=== PATIENT | male | born 1995 | race Caucasian/White ===

== ENCOUNTER 2017-03-21 20:21 | Observation (INO) | payer SELFPAY ==
[2017-03-21] MEDS ORDERED: NS 1,000 ML IV ONE (20:56)
[2017-03-21] MEDS ORDERED: ONDANSETRON 4 MG/2 ML VIAL IVP ONE (20:56)
[2017-03-21] MEDS ORDERED: fentaNYL 100 MCG/2 ML INJ IVP ONE (20:56)
--- NOTE | 2017-03-21 21:01 | EDPHY ---
H & P Stated Complaint: LLQ abd pain Source: Patient Exam Limitations: No limitations - Personal History Current Tetanus/Diphtheria Vaccine: Unsure Current Tetanus Diphtheria and Acellular Pertussis (TDAP): Unsure - Medical/Surgical History Hx Asthma: No Hx Chronic Respiratory Disease: No Hx Diabetes: No Hx Cardiac Disease: No Hx Renal Disease: No Hx Cirrhosis: No Hx Alcoholism: No Hx HIV/AIDS: No Hx Splenectomy or Spleen Trauma: No Other PMH: N/A - Social History Smoking Status: Current every day smoker HPI/ROS: CHIEF COMPLAINT: Flank pain, abdominal pain HISTORY OF PRESENT ILLNESS: Patient complains of left-sided flank pain. This originally started 2 weeks ago. It is intermittent, colicky pain. Radiates in the left abdomen. No position of comfort at this time. It is steadily worsened. It is now constant. Nauseated. No fever. Mom vomiting multiple times. No hematuria, but he has frequent urination and incomplete urination. No known history of kidney stones but feels that he is having 1. No other associated complaints or modifying factors. Last intake by mouth of solids was 2:00 p.m. today. Last intake of water was 4 hours ago REVIEW OF SYSTEMS: Ten systems reviewed and are negative unless otherwise noted in the HPI PAST MEDICAL HISTORY: None PAST SURGICAL HISTORY: None SOCIAL HISTORY: Occasional tobacco and marijuana user. FAMILY HISTORY: None EXAMINATION General Appearance: Alert, no distress, in obvious discomfort Head: normocephalic, atraumatic Eyes: Pupils equal and round, no conjunctival pallor or injection ENT, Mouth: Mucous membranes moist Neck: Normal inspection, supple, non-tender Respiratory: Lungs are clear to auscultation. No wheeze, rhonchi or crackles Cardiovascular: Tachycardic rate. Regular rhythm Gastrointestinal: Abdomen is soft and nondistended. There is significant tenderness in left lower quadrant and left flank. No guarding. No rigidity. No tympany. Back: Left CVA tenderness. non-tender, no bony abnormalities Neurological: GCS 15. A&O, nonfocal Skin: Warm and dry, no rash no petechiae or purpura. Extremities: Nontender, no pedal edema Psychiatric: Mood and affect normal DIFFERENTIAL DIAGNOSES: Including but not limited to renal colic, ureteral colic, pyelonephritis, appendicitis, colitis, diverticulitis MDM: 9:00 p.m. Abdominal flank pain that is suspicious for renal colic. I have ordered CT scan , IV fluid, pain medication and laboratory studies. He is in no acute distress but very uncomfortable. 9:35 p.m. Notified by radiologist Dr. Torres. CT scan reveals multiple findings. There is a 5 mm stone at the left UVJ. There is a massively dilated ureter proximal with this. There is also a 10 mm stone in the inferior pole of the left kidney. The appearance of the ureter suggest the possibility of chronic stone pathology. 9:40 p.m. I re-evaluated the patient. He is not yet received medications. He is nauseated. I will switch the fentanyl to Dilaudid. Continue with IV fluid. Need urinalysis. 10:05 p.m. Patient re-evaluated. He has received his IV Dilaudid and is feeling minimally better. Still unable to urinate. IV fluid is currently administered. 10:10 p.m. Small amount of urine was obtained. We were able to perform a urine dip on this. Dip shows positive protein, positive ketones, positive blood. Negative for nitrite or bacteria. 10:15 p.m. Patient re-evaluated. Pain has increased to 8/10. Re-dose with 0.5 Dilaudid. Proceed with admission to the hospital. 10:20 p.m. Case discussed with Dr. Rose Bellamy. Admitted to her service. She is requesting Urology consult. Urology has been paged. 10:25 p.m. Case discussed with Urology Dr. Mcgarry. Patient will provide consultation. No further orders. (Joseph Sharpe) Constitutional: Initial Vital Signs Temperature (C) 36.7 C 03/21/17 20:33 Heart Rate 93 03/21/17 20:33 Respiratory Rate 20 03/21/17 20:33 Blood Pressure 171/87 H 03/21/17 20:33 O2 Sat (%) 96 03/21/17 20:33 O2 Delivery Mode Room Air Allergies/Adverse Reactions: No Known Allergies Allergy (Unverified 03/21/17 20:33) Home Medications: Medication Instructions Recorded Tamsulosin HCl [Flomax 0.4 MG (*)] 0.4 mg PO DAILY #14 cap 03/22/17 oxyCODONE IR [Oxycodone Ir (*)] 5 - 10 mg PO Q4H #10 tab 03/22/17 Medical Decision Making ED Course/Re-evaluation: The patient was evaluated and managed by the physician patient care assistant. I have reviewed this chart and I agree with the findings and plan of care as documented , as indicated by my signature. I am the secondary supervising physician. ( Lou Regalado) - Data Points Laboratory Results: Laboratory Results 03/21/17 21:14 03/21/17 21:14 Medications Given: Discontinued Medications Fentanyl (Sublimaze) 100 mcg IVP EDNOW ONE Stop: 03/21/17 20:57 Last Admin: 03/21/17 22:14 Dose: Not Given Hydromorphone HCl (Dilaudid) 1 mg IVP EDNOW ONE Stop: 03/21/17 21:43 Last Admin: 03/21/17 21:45 Dose: 1 mg Hydromorphone HCl (Dilaudid) 0.5 mg IVP EDNOW ONE Stop: 03/21/17 22:15 Last Admin: 03/21/17 22:16 Dose: 0.5 mg Hydromorphone HCl (Dilaudid) 0.4 mg IVP Q4HRS PRN PRN Reason: Pain, Severe Unable to Take PO Stop: 03/31/17 22:26 Last Admin: 03/21/17 23:45 Dose: 0.4 mg Sodium Chloride (Ns) 1,000 mls @ 0 mls/hr IV EDNOW ONE; Wide Open PRN Reason: Protocol Stop: 03/21/17 20:57 Last Admin: 03/21/17 21:45 Dose: 1,000 mls Ondansetron HCl (Zofran) 4 mg IVP EDNOW ONE Stop: 03/21/17 20:57 Last Admin: 03/21/17 21:45 Dose: 4 mg Tamsulosin HCl (Flomax) 0.4 mg PO DAILY [facility] Stop: 09/17/17 23:44 Last Admin: 03/22/17 08:04 Dose: 0.4 mg Departure - Departure Disposition: [facility] Clinical Impression: Renal colic on left side, Ureteral calculus, left, Ureteral dilatation Condition: Good
[2017-03-21 21:28] LABS: % IMMATURE GRANULYOCYTES 0.4 % (0.0-1.1); ABSOLUTE IMMATURE GRANULOCYTES 0.06 10^3/uL (0.00-0.10); ADD DIFF? NO; ADD MORPH? NO; ADD SCAN? NO; ATYPICAL LYMPHOCYTE FLAG 10 (0-99); FRAGMENT RBC FLAG 0 (0-99); HEMATOCRIT 46.1 % (40.0-51.0); HEMOGLOBIN 16.4 g/dL (13.7-17.5); LEFT SHIFT FLG 0 (0-99); LIPEMIA HEMOLYSIS FLAG 90 (0-99); MEAN CELL HEMOGLOBIN 32.9 pg (27.9-34.1); MEAN CELL HEMOGLOBIN CONCENTR. 35.6 g/dL (32.4-36.7); MEAN CELL VOLUME 92.4 fL (81.5-99.8); MEAN PLATELET VOLUME 9.9 fL (8.7-11.7); PLATELET CLUMPS FLAG 10 (0-99); PLATELET COUNT 240 10^3/uL (150-400); RED BLOOD CELL COUNT 4.99 10^6/uL (4.40-6.38); RED CELL DISTRIBUTION WIDTH 12.3 % (11.5-15.2)
[2017-03-21 21:37] LABS: ALANINE AMINOTRANSFERASE 34 IU/L (21-72); ALBUMIN 4.6 g/dL (3.5-5.0); ALKALINE PHOSPHATASE 59 IU/L (38-126); ANION GAP 16 mEq/L (8-16); ASPARTATE AMINOTRANSFERASE 27 IU/L (17-59); BILIRUBIN,TOTAL 0.7 mg/dL (0.1-1.4); BILIRUBIN-CONJUGATED 0.4 mg/dL (0.0-0.5); BILIRUBIN-UNCONJUGATED 0.3 mg/dL (0.0-1.1); CALCIUM 9.8 mg/dL (8.5-10.4); CARBON DIOXIDE 22 mEq/l (22-31); CHLORIDE 101 mEq/L (97-110); CREATININE 1.7 mg/dL (0.7-1.3); GLOMERULAR FILTRATION RATE 51; GLUCOSE 87 mg/dL (70-100); SODIUM 139 mEq/L (134-144); TOTAL PROTEIN 7.4 g/dL (6.3-8.2)
[2017-03-21] MEDS ORDERED: HYDROmorphONE/DILAUDID 1 MG/ML INJ IVP ONE ×2 (21:42→22:14)
[2017-03-21] MEDS ORDERED: ONDANSETRON DISINTEGRATING 4 MG TAB PO PRN (22:26)
[2017-03-21] MEDS ORDERED: ACETAMINOPHEN 325 MG TAB PO PRN (22:26)
[2017-03-21] MEDS ORDERED: ONDANSETRON 4 MG/2 ML VIAL IVP PRN (22:26)
[2017-03-21] MEDS ORDERED: HYDROmorphONE/DILAUDID 1 MG/ML INJ IVP PRN (22:27)
[2017-03-21] MEDS ORDERED: NS 1,000 ML IV SCH (22:30)
[2017-03-21 23:35] VITALS: RESP 16
[2017-03-22] MEDS: TAMSULOSIN HCL 0.4 MG CAP PO SCH ×2 (00:14→08:04)
--- NOTE | 2017-03-22 00:49 | GHP ---
[f rep st] HISTORY AND PHYSICAL DATE OF ADMISSION: 03/21/2017 CHIEF COMPLAINT: Left ureter stone, flank pain. HISTORY OF PRESENT ILLNESS: A 22-year-old male with no significant past medical history, presenting with left-sided flank pain. He noted initially 2 weeks ago. It was intermittent and colicky in his right flank and right suprapubic region. The pain has progressed, is now constant. He felt nauseated and had an episode of emesis today. No fevers. No hematuria, but has been urinating more frequently and not completing it. REVIEW OF SYSTEMS: I completed a 10-point review of systems, negative except as noted per HPI. PAST MEDICAL HISTORY: None. PAST SURGICAL HISTORY: None. SOCIAL HISTORY: Lives in [place]. Works as a plant manager. Smokes marijuana, tobacco. Used cocaine yesterday. FAMILY HISTORY: Mother: Prediabetes. MEDICATIONS: None. ALLERGIES: None. PHYSICAL EXAM: VITAL SIGNS: Temperature 36.9, blood pressure 140/74, heart rate 55, respirations 16, 96% on room air. GENERAL: Lying in bed on stomach, uncomfortable. HEENT: PERRLA. Dry mucous membranes. CV: Regular rate and rhythm. No murmurs, gallops, rubs. LUNGS: Clear to auscultation bilaterally. ABDOMEN: Soft, nondistended. Left lower quadrant pain. Positive bowel sounds. : Left CVA tenderness. MUSCULOSKELETAL: 5/5 upper and lower extremity strength. NEUROLOGIC: 2 through 12 intact. PSYCHIATRIC: Alert and oriented x3. LABORATORY DATA: WBC 15, hemoglobin 16, hematocrit 46, platelets 240. Sodium 139, potassium 4.0, chloride 101, anion gap 16, BUN 27, creatinine 1.7. LFTs within normal. Lipase 64. CT abdomen and pelvis: Marked dilatation of the right renal pelvis and ureter, 5.5 mm calculus at the left UVJ. A 10 mm calculus, lower pole left kidney. ASSESSMENT AND PLAN: 1. Left ureteral and kidney stones: CT showing dilatation. Urology was consulted from the emergency room.Treat symptomatically with IV fluids and IV Dilaudid. Strain urine. Flomax. 2. Acute flank pain secondary to above. UA pending. 3. Acute kidney injury: Creatinine elevated at 1.7. Hydrate. Repeat in the morning. 4. Diet: N.P.O. after midnight. DISPOSITION: Patient warrants observation admission given acute kidney stone warranting IV fluids and IV pain control. /[id number]/MODL MTDD
[2017-03-22 05:24] LABS: HEMATOCRIT 43.9 % (40.0-51.0); HEMOGLOBIN 15.4 g/dL (13.7-17.5); MEAN CELL HEMOGLOBIN 33.1 pg (27.9-34.1); MEAN CELL HEMOGLOBIN CONCENTR. 35.1 g/dL (32.4-36.7); MEAN CELL VOLUME 94.4 fL (81.5-99.8); RED BLOOD CELL COUNT 4.65 10^6/uL (4.40-6.38); RED CELL DISTRIBUTION WIDTH 12.3 % (11.5-15.2)
[2017-03-22 05:53] LABS: ANION GAP 10 mEq/L (8-16); CALCIUM 9.2 mg/dL (8.5-10.4); CARBON DIOXIDE 21 mEq/l (22-31); CHLORIDE 105 mEq/L (97-110); CREATININE 1.2 mg/dL (0.7-1.3); GLOMERULAR FILTRATION RATE > 60; GLUCOSE 76 mg/dL (70-100); POTASSIUM 4.4 mEq/L (3.5-5.2); SODIUM 136 mEq/L (134-144)
[2017-03-22 06:07] LABS: COLOR YELLOW; LEUKOCYTE ESTERASE,URINE NEGATIVE (NEGATIVE); NITRITE,URINE NEGATIVE (NEGATIVE)
[2017-03-22 06:15] LABS: BACTERIA TRACE /hpf (NONE SEEN); MUCUS TRACE /lpf (NONE-1+); RBC,URINE 25-50 /hpf (0-3)
--- NOTE | 2017-03-22 07:26 | PDCONSULT ---
Nib Assembler Note: Pt admitted with 5mm left UVJ stone and severe pain. Discussed with RN and pt. Discussed options of KUB and if clear and pain remains controlled then home vs ureteroscopy. Discussed the ureteroscopy procedure in detail. For now he wants to obtain the Xray and see how he feels. Will reassess in a few hours. Hopefully can be discharged later today
--- NOTE | 2017-03-22 10:06 | ASMTCMCOM ---
CM Note CM Note Notes: CM reviewed chart, pt is a 22 y/o male admitted w/ left flank pain. Pt has no significant hx of medical problems. Pt reports pain started 2 weeks ago. Pt lives in [place] and works as a applications engineering manager. Pt smokes marijuana, tobacco and used cocaine on 02/17/17. Abdomen x-ray being conducted today. Pt has 5mm left UVJ stone. Pt will most likely discharge independent if he doesn't have ureteroscopy. No therapies ordered. CM available for changes. Date Signed: 03/22/2017 10:05 AM Electronically Signed By:THEO Ch
[2017-03-22 11:56] VITALS: BP 110/58; PULSE 16; TEMP 98.3; O2SAT 97
--- NOTE | 2017-03-22 20:46 | GDS ---
[f rep st] DISCHARGE SUMMARY DISCHARGE DIAGNOSES: 1. Nephrolithiasis with dilation of the left renal pelvis and ureter. 2. Acute kidney injury secondary to above, resolved with IV fluids. CONSULTANTS: Dr. Cristobal Mcgarry, Urology. IMAGING STUDIES/PROCEDURES: 1. Abdomen and pelvis CT, March 21, showed marked dilatation of the left renal pelvis and uret er, a 5.5 mm calculus in the left ureterovesical junction with dependent calcific debris within the u reter more proximally as well as a 10 mm calculus in the lower pole of the left kidney. 2. Abdomen x-ray, March 22, 2017, did not reveal evidence of left-sided urinary tract calculi. HISTORY: For details, please see the history and physical dated March 22. In brief, the patie stoney is a 22-year-old male who is otherwise healthy, who presented to the emergency department with lef t-sided flank pain for 2 weeks. Imaging revealed kidney and ureteral stones as described above. In addition, he was found to have a creatinine of 1.7 and was admitted to the hospital for further manag ement. HOSPITAL COURSE: The patient was admitted to the medical-surgical unit. He received IV fluids, was started on Flomax and received hydromorphone for pain control. The following morning, his renal func tion had completely normalized. His flank pain resolved. It is possible he passed the 5 mm stone wh ich was not visualized on a repeat abdomen x-ray. However, he was pain free. He has had no evidence of fever or clinical symptoms of infection, and he wishes to discharge home. DISPOSITION: The patient is discharged home in stable condition. FOLLOWUP: 1. Dr. Cristobal Mcgarry, Urology. 2. Primary Care. DISCHARGE MEDICATIONS: Please see [facility] for completed outpatient medication list. New medications on discharge include: 1. Flomax 0.4 mg p.o. daily, #14, no refills. 2. Oxycodone 5 to 10 mg p.o. q.4 hours, #10, no refills. /[id number]/MODL
== END 2017-03-22 12:43 | disposition home or self-care (01) ==
LOC: F1N 23:02
PROVIDERS: ADMIT Internal Medicine; ATTEND Hospitalist
DX: N20.1 Calculus of ureter (principal); N20.0 Calculus of kidney; N28.89 Other specified disorders of kidney and ureter; N17.9 Acute kidney failure, unspecified; F17.200 Nicotine dependence, unspecified, uncomplicated
CPT/HCPCS: 96374; G0378; J1170; J2405

== ENCOUNTER 2017-04-10 17:42 | Emergency (ER) | payer SELFPAY ==
[2017-04-10 18:01] VITALS: TEMP 98.1; O2SAT 97
--- NOTE | 2017-04-10 19:54 | EDPHY ---
H & P Stated Complaint: L FLANK PAIN Time Seen by Provider: 04/10/17 19:41 HPI/ROS: Chief Complaint: Left flank pain HPI: 22-year-old male who was admitted to this hospital on the th of last month with a left kidney stone. He passed stone was went home was feeling improved. Patient has been pain-free until this afternoon when he started having left flank pain again. Patient has vomited once. Pain got worse so he came to the emergency department for further evaluation. The patient states that while in the waiting room he went to the bathroom and urinated and believes he saw a fragments of stone or flecks of blood in his urine. At that point he had complete relief of his pain. Is currently pain-free. No fevers or chills. No abdominal pain. No recent illness. ROS: 10 point Review of Systems is negative except as noted in the HPI. PMH: Kidney stones Social History: Positive smoking, occasional alcohol, occasional marijuana Family History: non-contributory Physical Exam: Gen: Awake, Alert, No Distress HEENT: Nose: no rhinorrhea Eyes: PERRLA, EOMI Mouth: Moist mucosa Neck: Supple, no JVD Chest: nontender, lungs clear to auscultation Heart: S1, S2 normal, no murmur Abd: Soft, non-tender, no guarding Back: no CVA tenderness, no midline tenderness Ext: no edema, non-tender Skin: no rash Neuro: CN II-XII intact, Sensation grossly intact, Strength 5/5 in bilateral upper and lower extremities - Personal History Current Tetanus Diphtheria and Acellular Pertussis (TDAP): Yes Tetanus Vaccine Date: < 10 YEARS - Medical/Surgical History Hx Asthma: No Hx Chronic Respiratory Disease: No Hx Diabetes: No Hx Cardiac Disease: No Hx Renal Disease: No Hx Cirrhosis: No Hx Alcoholism: No Hx HIV/AIDS: No Hx Splenectomy or Spleen Trauma: No Other PMH: N/A - Social History Smoking Status: Current every day smoker Constitutional: Initial Vital Signs Temperature (C) 36.7 C 04/10/17 18:00 Heart Rate 63 04/10/17 18:00 Respiratory Rate 18 04/10/17 18:00 Blood Pressure 134/98 H 04/10/17 18:00 O2 Sat (%) 97 04/10/17 18:00 O2 Delivery Mode Room Air Allergies/Adverse Reactions: No Known Allergies Allergy (Unverified 04/10/17 18:02) Home Medications: Medication Instructions Recorded Tamsulosin HCl [Flomax 0.4 MG (*)] 0.4 mg PO DAILY #14 cap 03/22/17 oxyCODONE IR [Oxycodone Ir (*)] 5 - 10 mg PO Q4H #10 tab 03/22/17 Medical Decision Making ED Course/Re-evaluation: 22-year-old male with a history kidney stones 2 weeks ago who is coming here with similar symptoms. He has 2+ blood in his urine. At the time I saw him he was pain free. This was that no treatment. He did passed some fragments when he urinated believes he may have passed stone. He will be discharged home with a urine strainer and referral to follow up with Urology. I have instructed him to sure he drinks at plenty of fluids. Return for worsening. Departure - Departure Disposition: Home, Routine, Self-Care Clinical Impression: Renal colic on left side Condition: Good Instructions: Renal Colic (ED) Additional Instructions: Make sure you drink plenty of water. Follow up with Urology. Strain your urine and collect any stones that you get other intake them to your urology appointment. Referrals: Cristobal Gusman MD [Medical Doctor] - As per Instructions
[2017-04-10 20:03] VITALS: BP 121/76; PULSE 76; RESP 16
== END 2017-04-10 20:04 | disposition home or self-care (01) ==
DX: N23 Unspecified renal colic (principal); F17.200 Nicotine dependence, unspecified, uncomplicated